=== PATIENT | female | born 1985 | race Caucasian/White ===

== ENCOUNTER 2016-10-27 13:58 | Emergency (ER) | payer OTHER ==
[~2016-10-27] VITALS: Ht 167.6 cm; Wt 62.1 kg
[2016-10-27 16:05] LABS: HEMATOCRIT 44.7 % (36.0-46.0); MCH 28.1 PG (29.0-34.0); MCHC 34.2 G/DL (30.0-36.0); MEAN PLAT.VOLUME 10.6 uM^3 (9.5-12.4); PLATELET COUNT 166 K/uL (156-360); RBC DIS.WIDTH-CV 12.8 % (11.8-14.6); RBC DIS.WIDTH-SD 38.1 % (39-53); RED BLOOD COUNT 5.45 M/uL (3.80-5.20); WHITE BLOOD COUNT 5.8 K/uL (4.1-10.2)
[2016-10-27 16:19] LABS: CHLORIDE 106 mEq/L (99-109); POTASSIUM 3.2 mEq/L (3.7-5.4); SODIUM 143 mEq/L (136-147)
[2016-10-27 16:20] LABS: GLUCOSE 94 mg/dL (70-99)
[2016-10-27 16:22] LABS: ANION GAP 11 MEQ/L (2-14)
[2016-10-27 16:24] LABS: GFR ESTIMATE (CALCULATED) > 59 mL/min/
[2016-10-27 16:25] LABS: UREA NITROGEN (BUN) 8 mg/dL (9-23)
[2016-10-27] MEDS ORDERED: VALTREX50 MG/ML PO (17:02)
[2016-10-27] MEDS ORDERED: PREDNISONE20 MG PO (17:02)
[2016-10-27 17:45] VITALS: BP 134/90
== END 2016-10-27 17:40 | disposition home or self-care (01) ==
LOC: EME 13:58
DX: G51.0 Bell's palsy (principal)
CPT/HCPCS: 70450; 71020; 80048; 85027; 93005; 99281; 99285